=== PATIENT | male | born 1955 | race Caucasian/White ===

== ENCOUNTER 2017-10-04 18:10 | Emergency (ER) | payer OTHER ==
[~2017-10-04] VITALS: Ht 160 cm; Wt 71.7 kg
[~2017-10-04 18:10] MED LIST: CLONAZEPAM1 MG PO; DALMANE30 MG PO; FLEXERIL5 MG PO; PRINIVIL10 MG PO
[2017-10-04] MEDS ORDERED: ZANTAC150 M3 (18:17)
[2017-10-04] MEDS ORDERED: AMLODIPINE BESY10 MG (18:17)
[2017-10-04] MEDS ORDERED: CLONAZEPAM1 MG (18:18)
[2017-10-04] MEDS ORDERED: CYCLOBENZAPRINE5 MG (18:19)
== END 2017-10-04 22:22 | disposition home or self-care (01) ==
LOC: ER 18:10
DX: J03.80 Acute tonsillitis due to other specified organisms (principal)

== ENCOUNTER 2023-03-28 06:12 | Day surgery (SDC) | payer OTHER ==
[~2023-03-28] VITALS: Ht 160 cm; Wt 76.2 kg
[~2023-03-28 06:12] MED LIST changes: +AMLODIPINE BESY10 MG; +CLONAZEPAM1 MG; +CYCLOBENZAPRINE5 MG; +FINAST PO; +ZANTAC150 M3
== END 2023-03-28 18:10 | disposition home or self-care (01) ==
LOC: CIR.AMB 06:12
PROVIDERS: ATTEND Surgery
DX: K40.30 Unilateral inguinal hernia, with obstruction, without gangrene, not specified as recurrent (principal); Z20.822 Contact with and (suspected) exposure to COVID-19; I10 Essential (primary) hypertension